=== PATIENT | female | born 1980 | race Two or more races ===

== ENCOUNTER 2016-06-23 02:58 | Emergency (ER) | payer OTHER ==
[2016-06-23] MEDS ORDERED: DIPHTH,PERTUSS(ACELL),TET VAC 0.5 ML VIAL IM V ONE (04:44)
== END 2016-06-23 05:20 | disposition home or self-care (01) ==
LOC: ED 02:58
DX: F32.9 Major depressive disorder, single episode, unspecified (principal); S50.812A Abrasion of left forearm, initial encounter; Z23 Encounter for immunization; X78.9XXA Intentional self-harm by unspecified sharp object, initial encounter; Y92.009 Unspecified place in unspecified non-institutional (private) residence as the place of occurrence of the external cause